=== PATIENT | male | born 1990 | race Caucasian/White ===

== ENCOUNTER 2016-10-26 13:15 | Emergency (ER) | payer MEDICAID ==
[~2016-10-26] VITALS: Ht 167.6 cm; Wt 68.2 kg
[~2016-10-26 13:15] MED LIST: AMOX1TAB16 PO; FLUO-191 PO
[2016-10-26] MEDS ORDERED: CLON1 PO (13:37)
[2016-10-26] MEDS ORDERED: SODIUM CHLORIDE 0.9% 1,000 ML IV ONE (14:01)
[2016-10-26 14:18] LABS: ADD UA MICROSCOPIC NO; APPEARANCE,URINE CLEAR (CLEAR); GLUCOSE, URINE (UA) NEGATIVE (NEGATIVE); KETONES,URINE 40 mg/dL (NEGATIVE); LEUKOCYTE ESTERASE ,URINE NEGATIVE (NEGATIVE); OCCULT BLOOD,URINE NEGATIVE (NEGATIVE); PH,URINE 7.5 (5.0-8.0); PROTEIN,URINE NEGATIVE (NEGATIVE)
[2016-10-26] MEDS ORDERED: LORazepam 1 MG TABLET PO ONE (14:30)
[2016-10-26 14:35] LABS: BASOPHILS # (AUTO) 0.03 K/uL (0.00-0.20); BASOPHILS % (AUTO) 0.3 % (0.0-2.0); EOSINOPHILS # (AUTO) 0.02 K/uL (0.00-0.70); EOSINOPHILS % (AUTO) 0.24 % (1.0-6.0); HEMOGLOBIN 15.2 g/dL (13.5-17.5); LYMPHOCYTES % (AUTO) 11.4 % (22.0-44.0); MEAN CORPUSCULAR HEMOGLOBIN 30.4 pg (26.0-34.0); MEAN CORPUSCULAR HGB CONC 33.7 G/dL (31.0-37.0); MEAN CORPUSCULAR VOLUME 90 fL (80-100); MONOCYTES # (AUTO) 0.4 K/uL (0.1-1.0); MONOCYTES % (AUTO) 4.6 % (2.0-9.0); NEUTROPHILS # (AUTO) 7.1 K/uL (1.8-7.7); NEUTROPHILS % (AUTO) 83.5 % (40.0-70.0); PLATELET COUNT (AUTO) 207 K/uL (150-450); RED BLOOD CELL COUNT(AUTO) 4.99 MIL/uL (4.50-5.90); RED CELL DISTRIBUTION WIDTH 13.9 % (11.5-14.5); WHITE BLOOD COUNT (AUTO) 8.6 K/uL (4.5-11.0)
[2016-10-26 14:45] LABS: ANION GAP 13 mmol/L (8-16); CARBON DIOXIDE 25 mmol/L (22-29); CHLORIDE 98 mmol/L (98-107); CREATININE 0.61 mg/dL (0.60-1.30); GLOMERULAR FILTR. RATE CALC > 60 mL/min (>60); POTASSIUM 3.7 mmol/L (3.5-5.1); SODIUM SERUM 136 mmol/L (136-145); UREA NITROGEN, BLOOD 4 mg/dL (7-18)
[2016-10-26 14:51] LABS: ALANINE AMINOTRANSFERASE 95 U/L (12-78); ALBUMIN 4.2 g/dL (3.4-5.0); ASPARTATE AMINOTRANSFERASE 42 U/L (15-37); BILIRUBIN,TOTAL 1.7 mg/dL (0.1-1.0); TOTAL PROTEIN, SERUM 7.8 g/dL (6.4-8.2)
[2016-10-26 17:01] VITALS: BP 124/81
== END 2016-10-26 17:27 | disposition home or self-care (01) ==
LOC: EMS 13:17
DX: F41.9 Anxiety disorder, unspecified (principal); F31.9 Bipolar disorder, unspecified; F17.210 Nicotine dependence, cigarettes, uncomplicated; F20.9 Schizophrenia, unspecified
CPT/HCPCS: 36415; 80053; 80307; 81003; 83690; 84484; 85025; 93005; 96360; 96361; 99285; J7030

== ENCOUNTER 2017-02-23 07:44 | Inpatient (IN) | payer MEDICAID ==
[2017-02-23] VITALS (7 sets, daily range): BP systolic 108–135; BP diastolic 60–85
[~2017-02-23] VITALS: Ht 167.6 cm; Wt 72.7 kg
[~2017-02-23 07:44] MED LIST changes: +CLON1 PO
[2017-02-23 08:43] LABS: BASOPHILS % (AUTO) 0.5 % (0.0-2.0); EOSINOPHILS % (AUTO) 1.8 % (1.0-6.0); HEMATOCRIT 44.7 % (41-53); HEMOGLOBIN 15.4 g/dL (13.5-17.5); LYMPHOCYTES % (AUTO) 16.3 % (22.0-44.0); MEAN CORPUSCULAR HEMOGLOBIN 30.8 pg (26.0-34.0); MEAN CORPUSCULAR HGB CONC 34.5 G/dL (31.0-37.0); MEAN CORPUSCULAR VOLUME 89 fL (80-100); MONOCYTES # (AUTO) 0.6 K/uL (0.1-1.0); MONOCYTES % (AUTO) 8.7 % (2.0-9.0); NEUTROPHILS # (AUTO) 4.6 K/uL (1.8-7.7); NEUTROPHILS % (AUTO) 72.7 % (40.0-70.0); PLATELET COUNT (AUTO) 230 K/uL (150-450); RED CELL DISTRIBUTION WIDTH 14.6 % (11.5-14.5)
[2017-02-23 09:11] LABS: AMPHET/METH SCREEN,URINE POSITIVE (NEGATIVE); BARBITURATE SCREEN, URINE NEGATIVE (NEGATIVE); BENZODIAZEPINES SCREEN,URINE NEGATIVE (NEGATIVE); CANNABINOID SCREEN,URINE NEGATIVE (NEGATIVE); COCAINE SCREEN,URINE NEGATIVE (NEGATIVE); METHADONE SCREEN, URINE NEGATIVE (NEGATIVE); OPIATE SCREEN,URINE NEGATIVE (NEGATIVE)
[2017-02-23 09:13] LABS: PHENCYCLIDINE SCREEN,URINE NEGATIVE (NEGATIVE)
[2017-02-23 09:19] LABS: ANION GAP 17 mmol/L (8-16); CALCIUM, TOTAL 8.9 mg/dL (8.8-10.5); CARBON DIOXIDE 22 mmol/L (22-29); CHLORIDE 94 mmol/L (98-107); CREATININE 0.68 mg/dL (0.60-1.30); GLOMERULAR FILTR. RATE CALC > 60 mL/min (>60); GLUCOSE,RANDOM 73 mg/dL (70-110); POTASSIUM 3.8 mmol/L (3.5-5.1); SODIUM SERUM 133 mmol/L (136-145); UREA NITROGEN, BLOOD 12 mg/dL (7-18)
[2017-02-23 09:25] LABS: ALANINE AMINOTRANSFERASE 305 U/L (12-78); ALBUMIN 4.1 g/dL (3.4-5.0); ALKALINE PHOSPHATASE 84 U/L (46-116); ASPARTATE AMINOTRANSFERASE 155 U/L (15-37); BILIRUBIN,TOTAL 1.6 mg/dL (0.1-1.0); TOTAL PROTEIN, SERUM 8.4 g/dL (6.4-8.2)
[2017-02-23] MEDS ORDERED: CYANOCOBALAMIN 1,000 MCG/ML VIAL IM ONE (11:30)
[2017-02-23] MEDS ORDERED: ChlordiazePOXIDE HCL 25 MG CAPSULE PO PRN (11:30)
[2017-02-23] MEDS ORDERED: GuaiFENesin/D-METHORPHAN [SUGAR-FREE] 200-20MG/10 ML SYRUP UDCUP PO PRN (11:30)
[2017-02-23] MEDS ORDERED: HALOPERIDOL 5 MG TABLET PO PRN (11:30)
[2017-02-23] MEDS ORDERED: LOPERAMIDE HCL 2 MG CAPSULE PO PRN (11:30)
[2017-02-23] MEDS ORDERED: PNEUMOCOCCAL VACCINE POLYVALENT 0.5 ML VIAL [PPSV23] IM ONE (15:15)
[2017-02-23] MEDS ORDERED: INFLUENZA VIRUS VACCINE QVS 2017-18 (3YR+)/PF 60 MCG/0.5 ML SYRINGE IM ONE (15:15)
[2017-02-23] MEDS: LORazepam 2 MG TABLET PO PRN (16:10)
[2017-02-23] MEDS: THIAMINE HCL 100 MG TABLET PO SCH (16:43)
[2017-02-23] MEDS ORDERED: ACETAMINOPHEN 325 MG TABLET PO PRN (19:00)
[2017-02-23] MEDS ORDERED: IBUPROFEN 600 MG TABLET PO PRN (19:00)
[2017-02-24] VITALS (7 sets, daily range): BP systolic 102–109; BP diastolic 58–75
[2017-02-24] MEDS: ChlordiazePOXIDE HCL 25 MG CAPSULE PO SCH ×4 (09:18→21:07)
[2017-02-24] MEDS: FOLIC ACID 1 MG TABLET PO SCH (09:18)
[2017-02-24] MEDS: MULTIVITAMINS WITH MINERALS, THERAPEUTIC TABLET PO SCH (09:18)
[2017-02-24] MEDS: THIAMINE HCL 100 MG TABLET PO SCH ×2 (09:18→17:12)
[2017-02-24] MEDS: LORazepam 2 MG TABLET PO PRN ×2 (10:32→17:12)
[2017-02-24] MEDS: ChlordiazePOXIDE HCL 25 MG CAPSULE PO PRN ×2 (11:45→15:56)
[2017-02-24] MEDS: HydrOXYzine PAMOATE 50 MG CAPSULE PO PRN (19:47)
[2017-02-25 00:53] VITALS: BP 104/68
[2017-02-25] MEDS: ZOLPIDEM TARTRATE 10 MG TABLET PO PRN ×2 (01:32→21:36)
[2017-02-25 08:28] VITALS: BP 107/62
[2017-02-25 08:29] VITALS: BP 107/62
[2017-02-25] MEDS: BuPROPion HCL XL 150 MG ER TABLET PO SCH (08:34)
[2017-02-25] MEDS: ChlordiazePOXIDE HCL 25 MG CAPSULE PO SCH ×4 (08:34→21:36)
[2017-02-25] MEDS: THIAMINE HCL 100 MG TABLET PO SCH ×2 (08:34→17:51)
[2017-02-25] MEDS: MULTIVITAMINS WITH MINERALS, THERAPEUTIC TABLET PO SCH (08:34)
[2017-02-25] MEDS: FOLIC ACID 1 MG TABLET PO SCH (08:34)
[2017-02-25] MEDS: HydrOXYzine PAMOATE 50 MG CAPSULE PO PRN (09:00)
[2017-02-25] MEDS: LORazepam 2 MG TABLET PO PRN ×2 (10:02→14:41)
[2017-02-25] MEDS: PredniSONE 20 MG TABLET PO SCH ×2 (10:15→13:28)
[2017-02-25 16:00] VITALS: BP 106/72
[2017-02-25] MEDS: MUPIROCIN CALCIUM 2% 22 GM OINTMENT NASAL SCH (17:51)
[2017-02-25 19:35] VITALS: BP 94/57
[2017-02-26 05:12] VITALS: BP 120/71
[2017-02-26 05:13] VITALS: BP 120/71
[2017-02-26] MEDS: LORazepam 2 MG TABLET PO PRN ×2 (05:42→10:03)
[2017-02-26] MEDS ORDERED: ChlordiazePOXIDE HCL 10 MG CAPSULE PO PRN (07:00)
[2017-02-26 08:56] VITALS: BP 128/84
[2017-02-26 08:58] VITALS: BP 128/84
[2017-02-26] MEDS: BuPROPion HCL XL 150 MG ER TABLET PO SCH (09:59)
[2017-02-26] MEDS: ChlordiazePOXIDE HCL 10 MG CAPSULE PO SCH ×2 (09:59→13:17)
[2017-02-26] MEDS: THIAMINE HCL 100 MG TABLET PO SCH (09:59)
[2017-02-26] MEDS: MUPIROCIN CALCIUM 2% 22 GM OINTMENT NASAL SCH (09:59)
[2017-02-26] MEDS: MULTIVITAMINS WITH MINERALS, THERAPEUTIC TABLET PO SCH (09:59)
[2017-02-26] MEDS: FOLIC ACID 1 MG TABLET PO SCH (09:59)
[2017-02-26] MEDS: PredniSONE 20 MG TABLET PO SCH (10:00)
[2017-02-26] MEDS ORDERED: BUPR-93 PO (12:44)
[2017-02-26] MEDS ORDERED: MUPI1OIN4 NS (12:45)
[2017-02-26] MEDS ORDERED: PRED20 PO (12:46)
[2017-02-27] MEDS ORDERED: ChlordiazePOXIDE HCL 10 MG CAPSULE PO PRN (07:00)
== END 2017-02-26 15:15 | disposition home or self-care (01) | DRG 751 ==
LOC: EMS 07:48 → B2S 12:35 → 3EI 02-25 12:15
DX: F33.2 Major depressive disorder, recurrent severe without psychotic features (principal); F15.20 Other stimulant dependence, uncomplicated; R45.851 Suicidal ideations; S90.829A Blister (nonthermal), unspecified foot, initial encounter; B19.20 Unspecified viral hepatitis C without hepatic coma; X58.XXXA Exposure to other specified factors, initial encounter; F17.200 Nicotine dependence, unspecified, uncomplicated; Z79.899 Other long term (current) drug therapy; Z59.0 Homelessness; Z81.8 Family history of other mental and behavioral disorders; Z91.5 Personal history of self-harm; Y93.89 Activity, other specified; Y92.89 Other specified places as the place of occurrence of the external cause
CPT/HCPCS: 82105; 86803; 87081; 96372; 99285; G0480; J3420

== ENCOUNTER 2017-03-03 19:24 | Emergency (ER) | payer MEDICAID ==
[~2017-03-03] VITALS: Ht 172.7 cm; Wt 77.0 kg
[~2017-03-03 19:24] MED LIST changes: -AMOX1TAB16 PO; +BUPR-93 PO; -CLON1 PO; -FLUO-191 PO; +MUPI1OIN4 NS; +PRED20 PO
[2017-03-03] MEDS ORDERED: SODIUM CHLORIDE 0.9% 1,000 ML IV ONE ×2 (20:15→21:30)
[2017-03-03] MEDS ORDERED: MORPHINE SULFATE 4 MG/ML SYRINGE IVP ONE (20:15)
[2017-03-03] MEDS ORDERED: ONDANSETRON HCL 4 MG/2 ML VIAL IVP ONE (20:15)
[2017-03-03 20:44] LABS: BASOPHILS % (AUTO) 0.9 % (0.0-2.0); EOSINOPHILS % (AUTO) 3.6 % (1.0-6.0); HEMATOCRIT 48.2 % (41-53); HEMOGLOBIN 16.3 g/dL (13.5-17.5); MEAN CORPUSCULAR HEMOGLOBIN 30.8 pg (26.0-34.0); MEAN CORPUSCULAR HGB CONC 33.8 G/dL (31.0-37.0); MEAN CORPUSCULAR VOLUME 91 fL (80-100); MONOCYTES # (AUTO) 0.4 K/uL (0.1-1.0); MONOCYTES % (AUTO) 7.1 % (2.0-9.0); NEUTROPHILS # (AUTO) 3.4 K/uL (1.8-7.7); NEUTROPHILS % (AUTO) 56.4 % (40.0-70.0); PLATELET COUNT (AUTO) 350 K/uL (150-450); RED BLOOD CELL COUNT(AUTO) 5.29 MIL/uL (4.50-5.90)
[2017-03-03 20:53] LABS: ANION GAP 7 mmol/L (8-16); CALCIUM, TOTAL 8.8 mg/dL (8.8-10.5); CARBON DIOXIDE 33 mmol/L (22-29); CHLORIDE 104 mmol/L (98-107); CREATININE 0.79 mg/dL (0.60-1.30); GLOMERULAR FILTR. RATE CALC > 60 mL/min (>60); GLUCOSE,RANDOM 126 mg/dL (70-110); POTASSIUM 3.9 mmol/L (3.5-5.1); SODIUM SERUM 144 mmol/L (136-145); UREA NITROGEN, BLOOD 6 mg/dL (7-18)
[2017-03-03 21:01] LABS: ALANINE AMINOTRANSFERASE 349 U/L (12-78); ALKALINE PHOSPHATASE 97 U/L (46-116); ASPARTATE AMINOTRANSFERASE 180 U/L (15-37); BILIRUBIN,TOTAL 0.2 mg/dL (0.1-1.0); LIPASE 94 U/L (73-393); TOTAL PROTEIN, SERUM 8.3 g/dL (6.4-8.2)
[2017-03-03 21:15] LABS: LACTIC ACID 2.3 mmol/L (0.4-2.0)
[2017-03-03] MEDS ORDERED: LORazepam 1 MG TABLET PO ONE (22:15)
[2017-03-03 22:44] VITALS: BP 127/73
== END 2017-03-03 23:18 | disposition home or self-care (01) ==
LOC: EMS 19:25
DX: S52.571A Other intraarticular fracture of lower end of right radius, initial encounter for closed fracture (principal); S00.11XA Contusion of right eyelid and periocular area, initial encounter; F17.210 Nicotine dependence, cigarettes, uncomplicated; V48.6XXA Car passenger injured in noncollision transport accident in traffic accident, initial encounter; Y93.89 Activity, other specified; Y92.89 Other specified places as the place of occurrence of the external cause; Y99.8 Other external cause status
CPT/HCPCS: 29125; 36415; 70450; 70486; 71045; 72125; 73090; 73110; 73130; 80053; 83605; 83690; 85025; 96361; 96374; 96375; 99285; G0480; J2270; J2405; J7030